=== PATIENT | female | born 2005 | race Caucasian/White ===

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

== ENCOUNTER 2024-01-13 16:45 | Emergency (ER) | payer OTHER ==
[2024-01-13 17:17] LABS: BASOPHILS ABSOLUTE AUTO 0.08 K/uL (0.00-0.10); EOSINOPHILS ABSOLUTE AUTO 0.06 K/uL (0.00-0.40); EOSINOPHILS PERCENT AUTO 0.8 % (0.0-5.4); HEMATOCRIT 37.6 % (34.3-46.0); HEMOGLOBIN 13.1 g/dL (11.2-15.5); IMMATURE GRAN ABSOLUTE AUTO 0.01 K/uL (0.00-0.23); IMMATURE GRAN PERCENT AUTO 0.1 % (0.0-0.7); LYMPHOCYTES ABSOLUTE AUTO 2.76 K/uL (0.8-3.3); LYMPHOCYTES PERCENT AUTO 34.9 % (11.4-47.7); MEAN CORPUSCULAR HEMOGLOBIN 28.8 pg (31.6-35.5); MEAN CORPUSCULAR HGB CONC 34.8 g/dL (31.6-35.5); MEAN CORPUSCULAR VOLUME 82.6 fL (81.4-99.0); MONOCYTES ABSOLUTE AUTO 0.57 K/uL (0.20-0.90); MONOCYTES PERCENT AUTO 7.2 % (3.3-12.6); NEUTROPHILS ABSOLUTE AUTO 4.42 K/uL (1.0-7.6); PLATELET COUNT,PLT 377 K/uL (130-375); RED BLOOD CELL COUNT 4.55 M/uL (3.77-5.24); WHITE BLOOD CELL COUNT,WBC 7.9 K/uL (3.2-11.0)
[2024-01-13 17:42] LABS: AMPHETAMINES SCREEN, URINE NEGATIVE (NEGATIVE); BARBITURATE SCREEN,URINE NEGATIVE (NEGATIVE); BENZODIAZEPINES SCREEN,URINE NEGATIVE (NEGATIVE); METHADONE SCREEN, URINE NEGATIVE (NEGATIVE); METHAMPHETAMINES SCREEN, URINE NEGATIVE (NEGATIVE); OXYCODONE SCREEN,URINE NEGATIVE (NEGATIVE); PROPOXYPHENE SCREEN,URINE NEGATIVE (NEGATIVE); THC SCREEN,URINE 50 NG/ML NEGATIVE (NEGATIVE)
[2024-01-13 17:43] LABS: A/G RATIO 1.1 (1.2-2.2); ALANINE AMINOTRANSFERASE,ALT 35 U/L (12-78); ALBUMIN 4.1 g/dL (3.4-5.0); ALKALINE PHOSPHATASE 105 U/L (46-116); ANION GAP 9.5 mmol/L (5.0-14.0); ASPARTATE AMNIOTRANSFERASE,AST 18 U/L (15-37); BILIRUBIN TOTAL 0.4 mg/dL (0.2-1.0); BLOOD UREA NITROGEN,BUN 14 mg/dL (7-18); CALCIUM 9.5 mg/dL (8.5-10.1); CARBON DIOXIDE,CO2 28 mmol/L (21-32); CHLORIDE,CL 103 mmol/L (100-108); CREATININE 0.8 mg/dL (0.6-1.0); EST CRCL DRUG DOSING (CG) 92.33 mL/min; ESTIMATED GFR 109 mL/min (>60); GLUCOSE RANDOM 107 mg/dL (74-106); POTASSIUM,K 4.4 mmol/L (3.6-5.2); PROTEIN TOTAL,TP 7.9 g/dL (6.4-8.2); SODIUM,NA 140 mmol/L (140-148)
[2024-01-13] MEDS: Acetaminophen 325 MG Tab PO ONE (18:53)
[2024-01-13] MEDS ORDERED: Non-Formulary Medication 1 Each (Hydroxyzine Hcl [Hydroxyzine Hcl] 50 MG Tablet) PO SCH (21:00)
[2024-01-13] MEDS ORDERED: HALOPERIDOL 2 MG PO SCH (21:00)
[2024-01-13] MEDS: hydrOXYzine HCl 25 MG Tab PO SCH (21:47)
[2024-01-13] MEDS: Haloperidol 5 MG Tab PO SCH (21:47)
[2024-01-14] MEDS: Haloperidol 1 MG Tab PO SCH (09:32)
[2024-01-14] MEDS: Acetaminophen 500 MG Tab PO ONE (09:32)
[2024-01-14] MEDS: Nicotine 21 MG/24 Hr Patch TRDERM ONE (09:33)
[2024-01-14] MEDS: OLANZapine 5 MG Tab PO ONE ×2 (10:52→20:54)
[2024-01-14] MEDS: Ketorolac 30 MG/ML SDV IM ONE (21:07)
[2024-01-14] MEDS: diphenhydrAMINE 25 MG Cap PO PRN (22:40)
== END 2024-01-15 00:18 ==
LOC: JP.ED 16:45
DX: F28 Other psychotic disorder not due to a substance or known physiological condition (principal); I10 Essential (primary) hypertension; Z79.899 Other long term (current) drug therapy
CPT/HCPCS: 36415; 80053; 80305; 81025; 85025; 87635; 96372; 99284; 99285; A9270; J1885; U0002